=== PATIENT | female | born 1945 | race Two or more races ===

== ENCOUNTER 2018-10-20 11:15 | Emergency (ER) | payer MEDICARE ==
[~2018-10-20] VITALS: Ht 157.5 cm; Wt 104.3 kg
[2018-10-20 13:30] VITALS: BP 148/74
== END 2018-10-20 14:24 | disposition home or self-care (01) ==
LOC: ER 11:23
DX: S33.9XXA Sprain of unspecified parts of lumbar spine and pelvis, initial encounter (principal); S20.212A Contusion of left front wall of thorax, initial encounter; R51 Headache; M54.2 Cervicalgia; Z88.0 Allergy status to penicillin; W06.XXXA Fall from bed, initial encounter; Y93.89 Activity, other specified; Y92.092 Bedroom in other non-institutional residence as the place of occurrence of the external cause; Y99.8 Other external cause status
CPT/HCPCS: 70450; 71250; 72125; 93005